=== PATIENT | male | born 1980 ===

== ENCOUNTER 2018-11-26 13:13 | Inpatient (IN) | payer BC, SELFPAY ==
[2018-11-26 14:59] VITALS: BMI 27.0
[2018-11-26] MEDS ORDERED: Aspirin 325 MG TAB ONE (15:18)
[2018-11-26] MEDS: Aspirin 325 MG TAB PO SCH ×2 (15:23→15:31)
[2018-11-26] MEDS ORDERED: Ondansetron PF 4 MG/2 ML Vial IVP PRN (16:50)
[2018-11-26] MEDS ORDERED: Ondansetron ODT 4 MG TAB PO PRN (16:50)
[2018-11-26] MEDS ORDERED: Acetaminophen 650 MG Suppository PR PRN (16:50)
[2018-11-26] MEDS ORDERED: Acetaminophen 325 MG TAB PO PRN (16:50)
--- NOTE | 2018-11-26 18:23 | ULT ---
CAROTID DOPPLER ULTRASOUND EVALUATION: 11/26/18 HISTORY: Stroke. Right sided weakness. TIAs. Multiple longitudinal and transverse images of the carotid arteries obtained using a multihertz linea r array transducer. Real time, color flow, and spectral waveform doppler analysis demonstrates no evidence of right or le ft common carotid, internal carotid, or external carotid artery, increased flow velocities or plaques seen. No evidence of flow limiting lesions seen. Antegrade flow is seen in both vertebral arteries. IMPRESSION: Normal carotid doppler ultrasound evaluation. POS: [facility]
[2018-11-26] MEDS: Famotidine 20 MG TAB PO SCH (22:06)
[2018-11-27 05:35] LABS: #Eosinphils 0.1 thou/uL (0.0-0.7); #Lymphocytes 0.9 thou/uL (1.20-3.40); #Monocytes 0.7 thou/uL (0.11-0.59); #Neutrophils 5.2 thou/uL (1.40-6.50); %Basophils 0.2 % (0.0-1.0); %Eosinophils 1.9 % (0.0-10.0); %Lymphocytes 12.6 % (21.0-51.0); %Monocytes 10.4 % (0.0-10.0); Hemoglobin 13.8 g/dL (14.0-18.0); Mean Corpuscular HGB CONC 32.2 g/dL (32.0-36.0); Mean Corpuscular Hemoglobin 27.3 pg (27.0-31.0); Mean Platelet Volume 6.1 fL (7.4-10.4); Platelet Count 279 thou/uL (130-400); Red Blood Cell (RBC) Count 5.04 mill/uL (4.70-6.10); White Blood Cell (WBC) Count 6.9 thou/uL (4.8-10.8)
[2018-11-27 05:56] LABS: Anion Gap 13 mmol/L (10-20); BUN (Urea Nitrogen) 10 mg/dL (8.9-20.6); Calc. Creatinine Clearance 99 mL/min (70-130); Calcium 9.7 mg/dL (7.8-10.44); Carbon Dioxide 26 mmol/L (22-29); Cardiac Risk 3.6 (Less than 4.5); Chloride 102 mmol/L (98-107); Cholesterol 116 mg/dl (< 200 Desired); Estimated GFR-MDRD 72; Glucose 98 mg/dL (70-105); HDL Cholesterol 32 mg/dL (>60 Neg Risk); LDL Cholesterol, Calculated 70 mg/dL; Sodium 137 mmol/L (136-145); Triglycerides 69 mg/dL (Less than 150)
[2018-11-27] MEDS: Famotidine 20 MG TAB PO SCH ×2 (08:59→20:45)
--- NOTE | 2018-11-27 09:42 | CON ---
DATE OF CONSULTATION: 11/26/2018 CONSULTING PHYSICIAN: Hospitalist Service. IMPRESSION: Probable left thalamic stroke. PLAN: 1. MRI of the brain. 2. Echocardiogram. HISTORY OF PRESENT ILLNESS: Mr. Vergara is a 38-year-old male with no significant past history other than hearing loss. He woke yesterday with numbness and weakness on the right side. His symptoms have improved slightly by his assessment. He has never had anything like this before. He is not having any headache, nausea, vomiting, vertigo, slurred speech, or difficulty swallowing. He came into the ER and the only available report is a carotid ultrasound, which was unremarkable. LABORATORY STUDIES: Include a CBC and serum chemistry showed normal findings with a cholesterol ratio of 3.6. PAST MEDICAL HISTORY: Otherwise, negative. ALLERGIES: NONE. SOCIAL HISTORY: No tobacco, alcohol, or illicit drugs. FAMILY HISTORY: Unremarkable for stroke. MEDICATION LIST: None. REVIEW OF SYSTEMS: Ten system review of systems is otherwise negative. PHYSICAL EXAMINATION: VITAL SIGNS: Blood pressure 117/80, pulse 95, respirations 16, and temperature 98.2. HEENT: Pupils are equal and reactive. Conjunctivae are clear. Oropharynx clear. NECK: Supple. No lymphadenopathy. EXTREMITIES: No cyanosis, clubbing, or edema. NEUROLOGIC: He is alert and cooperative. His speech was fluent and clear. Cranial nerves were intact other than subjective decreased touch in the right lower face. Motor exam showed antigravity strength in the extremities, but there was dysmetria on [id number] testing on the right side. Sensation was subjectively decreased in the right arm and leg to light touch. Plantar responses were downgoing. Gait was not tested. No abnormal movements were seen. SUMMARY: A 38-year-old man with acute onset of numbness and incoordination of the right side. These findings would suggest a small vessel stroke in the thalamus. I will see what the MRI reveals. I will go ahead and start him on aspirin and a statin and will follow up on the results. Job ID: [id number]
[2018-11-27] MEDS ORDERED: Lorazepam 0.5 MG TAB PO PRN (10:43)
[2018-11-27] MEDS ORDERED: Lorazepam 2 MG/ML VIAL SLOW IVP PRN (10:51)
--- NOTE | 2018-11-27 10:56 | MRI ---
NONCONTRAST MRI BRAIN: Date: 11/27/18 HISTORY: Right-sided numbness, tingling, and weakness. Reduced sensation on the right side. COMPARISON: None available. FINDINGS: There is a focal area of restricted diffusion seen within the left thalamus, compatible with an acute lacunar infarction. No additional acute infarction is seen. The lacunar infarction in the left thala mus measures approximately 1.3 cm. There is prominent motion artifact present on multiple sequences, limiting evaluation, but no definit e additional signal abnormalities are seen throughout the brain. The septum pellucidum and third ventricle are in the midline. The ventricular system is normal in siz e, shape, and position. Appropriate flow-voids are demonstrated at the base of the brain. There is almost complete opacification of the left maxillary antrum with mucus retention cyst seen in the right maxillary antrum. There is mucosal thickening seen in the region of the right frontoethmoi emilie recess. There is suggestion of a partially empty sella turcica. Orbits and remainder of skull base have a no rmal MRI appearance. IMPRESSION: Acute lacunar infarction left thalamus. Above findings discussed with Jacky, patient's nurse on the hospital floor, on 11/27/18 at 1048 hours . CODE CR. POS: [facility]
[2018-11-27] MEDS ORDERED: Aspirin 325 mg Enteric Coated Tablet PO SCH (12:15)
--- NOTE | 2018-11-27 14:58 | PDOC.PN ---
- Subjective Encounter Start Date: 11/27/18 Encounter Start Time: 11:00 The patient is a very pleasant 38 year old AAM who presented to the ED with complaints of right lower extremity and upper extremity weakness. MRI this morning has revealed an acute left thalamus CVA. He states that his right leg strength has much improved. He has also had some improvement in his right arm and hand, and can now hold his cell phone, where he couldn't before. He continues to complain of paresthesia in his right hand and arm. He has had no CP, SOB, or dizziness. He denies facial droop and slurred speech. - Objective Resuscitation Status - Order Detail: 11/26/18 16:50 Resuscitation Status Routine Co-Sign Provider: Resuscitation Status: FULL: Full Resuscitation Discussed with: Patient Vital Signs & Weight: Vital Signs (12 hours) Temp Pulse Resp BP BP Pulse Ox 11/27/18 12:00 98.2 F 99 16 130/89 99 11/27/18 09:00 98.2 F 95 16 117/80 99 11/27/18 07:40 98.2 F 95 16 117/80 99 11/27/18 04:00 98.4 F 88 18 118/73 98 Weight Weight 178 lb Result Diagrams: 11/27/18 04:56 11/27/18 04:56 Phys Exam - Physical Examination HEENT: PERRLA Neck: no nodes, no JVD, full ROM Respiratory: no wheezing, no rales, no rhonchi, clear to auscultation bilateral Cardiovascular: RRR Gastrointestinal: soft, non-tender Musculoskeletal: no edema, pulses present both lower extremities 5/5, RUE 3/5 Lymphatic: no nodes Psychiatric: normal affect, A&O x 3 Skin: no rash Dx/Plan (1) CVA (cerebral vascular accident) Code(s): I63.9 - CEREBRAL INFARCTION, UNSPECIFIED Status: Acute Comment: acute lacunar infarction left thalamus (2) Weakness following cerebrovascular accident (CVA) Code(s): I69.398 - OTHER SEQUELAE OF CEREBRAL INFARCTION; R53.1 - WEAKNESS Status: Acute Comment: Right upper extremity - Plan * . Neurology has been consulted. Given the patient's acute CVA and symptoms, he will need PT/OT eval. Start ASA and statin. Care discussed with the family and patient and all questions have been answered. Given his new diagnosis of acute CVA, he does meet inpatient criteria. Review of Systems - Review of Systems Constitutional: negative: fever, chills Eyes: negative: Pain, Vision Change ENT: negative: Ear Discharge Respiratory: negative: Cough Cardiovascular: negative: chest pain, palpitations, edema Gastrointestinal: negative: Nausea, Vomiting, Abdominal Pain Genitourinary: negative: Dysuria Neurological: Weakness - Medications/Allergies Allergies/Adverse Reactions: Allergies Allergy/AdvReac Type Severity Reaction Status Date / Time No Known Allergies Allergy Verified 11/26/18 16:40 Medications: Current Medications Acetaminophen (Tylenol) 650 mg PO Q4H PRN PRN Reason: Headache/Fever/Mild Pain (1-3) Acetaminophen (Tylenol) 650 mg [place] Q4H PRN PRN Reason: Headache/Fever/Mild Pain (1-3) Aspirin (Ecotrin) 325 mg PO DAILY [facility] Atorvastatin Calcium (Lipitor) 10 mg PO HS [facility] Famotidine (Pepcid) 20 mg PO BID [facility] Last Admin: 11/27/18 08:59 Dose: 20 mg Lorazepam (Ativan) 0.5 mg SLOW IVP Q6H PRN PRN Reason: Anxiety/Agitation Last Admin: 11/27/18 11:10 Dose: 0.5 mg Ondansetron HCl (Zofran Odt) 4 mg PO Q6H PRN PRN Reason: Nausea/Vomiting Ondansetron HCl (Zofran) 4 mg IVP Q6H PRN PRN Reason: Nausea/Vomiting Sodium Chloride (Flush - Normal Saline) 10 ml IVF Q12HR PRN PRN Reason: Saline Flush Last Admin: 11/26/18 22:06 Dose: 10 ml Sodium Chloride (Flush - Normal Saline) 10 ml IVF PRN PRN PRN Reason: Saline Flush
[2018-11-27] MEDS: Atorvastatin Calcium 10 MG TAB PO SCH (20:46)
[2018-11-28] MEDS: Famotidine 20 MG TAB PO SCH ×2 (08:21→21:53)
[2018-11-28] MEDS: Aspirin 325 mg Enteric Coated Tablet PO SCH (08:22)
--- NOTE | 2018-11-28 19:24 | PDOC.PN ---
- Subjective Encounter Start Date: 11/28/18 Encounter Start Time: 11:30 Patient seen and examined for Acute CVA. No new focal deficits. No new complaints. No overnight events - Objective Resuscitation Status - Order Detail: 11/26/18 16:50 Resuscitation Status Routine Co-Sign Provider: Resuscitation Status: FULL: Full Resuscitation Discussed with: Patient MAR Reviewed: Yes Vital Signs & Weight: Vital Signs (12 hours) Temp Pulse Pulse Pulse Resp BP BP 11/28/18 15:34 98.9 F 92 20 11/28/18 11:37 98.9 F 96 18 11/28/18 09:26 89 105 H 142/91 H 135/97 H 11/28/18 08:16 11/28/18 07:37 98.2 F 95 18 BP Pulse Ox 11/28/18 15:34 144/93 H 96 11/28/18 11:37 131/80 94 L 11/28/18 09:26 11/28/18 08:16 96 11/28/18 07:37 131/83 96 Weight Weight 178 lb I&O: 11/27/18 11/28/18 11/29/18 06:59 06:59 06:59 Intake Total 240 720 Balance 240 720 Result Diagrams: 11/27/18 04:56 11/27/18 04:56 EKG Reviewed by me: Yes (Tele SR) Phys Exam - Physical Examination Constitutional: NAD Respiratory: no wheezing, no rhonchi Cardiovascular: RRR, no rub Gastrointestinal: soft, positive bowel sounds Musculoskeletal: no edema Neurological: moves all 4 limbs no new focal deficits Psychiatric: A&O x 3 Dx/Plan - Plan DVT proph w/SCDs 1. Acute Left thalamic CVA causing Rt sided weakness/paresthesias 2. CKD 2 PLAN: Cont ASA/Statins Await Echo Cont PT DC in 24 hr if stable Review of Systems - Review of Systems Respiratory: negative: Cough, Dry, Shortness of Breath, Hemoptysis, SOB with Excertion, Pleuritic Pain, Sputum, Wheezing Cardiovascular: negative: chest pain, palpitations, orthopnea, paroxysmal nocturnal dyspnea, edema, light headedness, other - Medications/Allergies Allergies/Adverse Reactions: Allergies Allergy/AdvReac Type Severity Reaction Status Date / Time No Known Allergies Allergy Verified 11/26/18 16:40 Medications: Current Medications Acetaminophen (Tylenol) 650 mg PO Q4H PRN PRN Reason: Headache/Fever/Mild Pain (1-3) Acetaminophen (Tylenol) 650 mg [place] Q4H PRN PRN Reason: Headache/Fever/Mild Pain (1-3) Aspirin (Ecotrin) 325 mg PO DAILY [facility] Last Admin: 11/28/18 08:22 Dose: 325 mg Atorvastatin Calcium (Lipitor) 10 mg PO HS [facility] Last Admin: 11/27/18 20:46 Dose: 10 mg Famotidine (Pepcid) 20 mg PO BID [facility] Last Admin: 11/28/18 08:21 Dose: 20 mg Lorazepam (Ativan) 0.5 mg SLOW IVP Q6H PRN PRN Reason: Anxiety/Agitation Last Admin: 11/27/18 11:10 Dose: 0.5 mg Ondansetron HCl (Zofran Odt) 4 mg PO Q6H PRN PRN Reason: Nausea/Vomiting Ondansetron HCl (Zofran) 4 mg IVP Q6H PRN PRN Reason: Nausea/Vomiting Sodium Chloride (Flush - Normal Saline) 10 ml IVF Q12HR PRN PRN Reason: Saline Flush Last Admin: 11/27/18 20:46 Dose: 10 ml Sodium Chloride (Flush - Normal Saline) 10 ml IVF PRN PRN PRN Reason: Saline Flush
[2018-11-28] MEDS: Atorvastatin Calcium 10 MG TAB PO SCH (21:53)
--- NOTE | 2018-11-29 07:21 | HP ---
REASON FOR ADMISSION: Right-sided weakness. HISTORY OF PRESENT ILLNESS: Mr. Vergara is a very pleasant 38-year-old man, who presents complaining of heaviness and reduced sensation in the right lower extremity that was noticeable round 7:00 a.m., this morning when he got to work. He recalls feeling a buckling sensation in his right knee when he got out of bed earlier in the morning around 3:00 a.m. The patient states once he arrived to work, he noticed that the leg was much heavier, causing him to work harder to lift it as he walked in. He then began to notice reduced sensation in the right lower leg and quickly the heaviness and numbness advanced up to involve his arm and then he began to feel a numbness and tingling sensation in the right side of his face. He denies having any visual or speech disturbances. Denies experiencing any headaches. Has not had any recent trauma. Denies having any neck pain or back pain. Has not had any recent fevers, chills, or sweats. Has been in his usual state of health in recent days. The patient states he left work right away and actually drove himself home. He was having difficulty raising his leg to transfer from the gas to the brake pedal. He managed to get home and called EMS. He was taken to [facility], where he underwent a CT of the head that was negative and an EKG that showed no major changes. Due to Neuro not being on-call at [facility], he was transferred directly here. Next, at this present time, the patient is doing well and has been given aspirin on arrival. REVIEW OF SYSTEMS: The patient denies having any associated headaches, dizziness, blurred vision, or speech changes as mentioned previously. He denies having any gait disturbances in terms of staggering gait. He has a sense of heaviness on the right side including his right leg and upper extremity. He has no facial drooping. Has had no drooling or swallowing difficulties, which is reported. Numbness, tingling, involving the entire right side of his face and scalp. Denies any nausea or vomiting. Denies any abdominal pain or cramping. Denies any chest pain, palpitations, or shortness of breath. Has not been unwell in recent days. Denies any neck pain or back pain. No recent injuries or traumas. No bowel changes or urinary symptoms. No other new skin changes. All other review of systems are negative. PAST MEDICAL HISTORY: None. SOCIAL HISTORY: The patient denies any alcohol use, tobacco use, or illicit drug use. ALLERGIES: NO KNOWN DRUG ALLERGIES. COMMUNICATIONS: None. PHYSICAL EXAMINATION: GENERAL: The patient appears well developed, well nourished, in no acute distress. He was sitting in bed comfortably. VITAL SIGNS: Temperature 98.6, pulse 102, respirations 14, O2 saturation 97% on room air. HEENT: Normocephalic and atraumatic. Pupils are equal, round, and reactive to light. Extraocular movements intact. No nystagmus. Oropharynx is clear. NECK: Supple without lymphadenopathy. Full range of motion. Facial movements normal with reduced sensation on the anterior right side of his face and scalp. No tongue deviation. CARDIAC: Regular rate and rhythm. LUNGS: Clear to auscultation bilaterally without wheezes, rales, or rhonchi. ABDOMEN: Soft, nontender, nondistended. Normoactive bowel sounds present. EXTREMITIES: No clubbing, cyanosis, or edema. NEUROLOGIC: Alert and oriented x3. Power 5/5 in all limbs. Able to straight leg raise against resistance bilaterally. Minimal difficulty with straight leg raise in the right lower extremity, there is only passive straight leg raise in the right lower extremity due to sensation of heaviness, reduced sensation in the entire right side of his body. No cerebellar signs. LABORATORY DATA: . IMPRESSION AND PLAN: Mr. Vergara is a very pleasant 38-year-old being admitted for management of the following; 1. Right-sided weakness and reduced sensation. The patient is undergoing workup for possible transient ischemic attack/stroke. CTA/CT of the head done at [facility] showed no abnormalities. I have requested an MRI of the brain as well as MRI of the cervical spine; and carotid Doppler is also ordered as well as neuro consult. We will obtain a fasting lipid panel. 2. Diet. The patient has a normal swallowing study at bedside. Therefore, we will resume a regular diet. 3. Gastrointestinal prophylaxis. 4. Deep venous thromboembolism prophylaxis. 5. Full code status. He indicates his surrogate decision maker would be his mother . The patient's case was discussed with Dr. Basilio, who agrees with plan of care as described above. Job ID: [id number]
[2018-11-29 07:38] VITALS: BP 131/75; TEMP 99.2
[2018-11-29] MEDS: Famotidine 20 MG TAB PO SCH (08:38)
[2018-11-29] MEDS: Aspirin 325 mg Enteric Coated Tablet PO SCH (08:38)
--- NOTE | 2018-11-29 17:35 | DIS ---
DATE OF ADMISSION: 11/27/2018 DATE OF DISCHARGE: 11/29/2018 DISCHARGE DISPOSITION: Home. FOLLOWUP: 1. Follow up with primary care physician at [facility] in 1 week. 2. Follow up with Neurology Dr. Amaya as outpatient in 2 to 3 weeks. ALLERGIES: NO KNOWN DRUG ALLERGIES. OUTPATIENT PHYSICAL THERAPY REFERRAL WAS PROVIDED. DISCHARGE MEDICATIONS: 1. Aspirin 325 mg daily. 2. Lipitor 10 mg at bedtime. The patient was seen and examined on the day of discharge. Denies any new complaints. No chest pain, shortness of breath, palpitations, or new focal deficit reported. BRIEF HOSPITAL COURSE: The patient is a 38-year-old male with no significant past medical history. He presented to the hospital with right-sided weakness along with paresthesias. Please refer to the history and physical for further details. The patient was admitted to the hospital with a diagnosis of suspected CVA. MRI of the brain showed acute lacunar infarction of the left thalamus. Carotid Doppler was negative for hemodynamically significant stenosis. Echocardiogram showed normal left ventricular ejection fraction of 55% to 60% with diastolic dysfunction, mild to moderate tricuspid regurgitation, mild mitral regurgitation. His symptoms are gradually improving. His LDL level was 70 with cholesterol 116, triglycerides 69 with HDL of 32. He has been started on low-dose statin along with aspirin per Neurology recommendation. He appears stable for discharge. FINAL DIAGNOSES: 1. Acute left thalamic cerebrovascular accident causing right-sided weakness and paresthesias, improving. 2. Chronic kidney disease, stage 2. 3. Mild anemia, normochromic normocytic. PLAN: Plan was discussed with the patient in detail. He stated understanding. Job ID: [id number]
== END 2018-11-29 11:30 | disposition home or self-care (01) | DRG 65 ==
LOC: INTOOBSV 13:50 → 2SE 13:50 → OBSVTOIN 11-27 14:51
PROVIDERS: ADMIT Internal Medicine; ATTEND Internal Medicine
DX: I63.81 Other cerebral infarction due to occlusion or stenosis of small artery (principal); G81.91 Hemiplegia, unspecified affecting right dominant side; N18.2 Chronic kidney disease, stage 2 (mild); R20.0 Anesthesia of skin; I08.1 Rheumatic disorders of both mitral and tricuspid valves; D64.9 Anemia, unspecified
CPT/HCPCS: 36415; 70551; 80048; 80061; 85025; 93306; 93880; J2060

== ENCOUNTER 2021-10-15 06:21 | Inpatient (IN) | payer BC ==
[2021-10-15 07:20] LABS: Hemoglobin 11.4 g/dL (14.0-18.0); Mean Corpuscular HGB CONC 30.9 g/dL (32.0-36.0); Mean Corpuscular Hemoglobin 25.1 pg (27.0-31.0); Mean Corpuscular Volume 81.1 fL (78.0-98.0); Platelet Count 363 thou/uL (130-400); RBC Distribution Width 12.8 % (11.5-14.5); Red Blood Cell (RBC) Count 4.54 mill/uL (4.70-6.10); White Blood Cell (WBC) Count 17.6 thou/uL (4.8-10.8)
[2021-10-15 07:21] LABS: ALT (SGPT) 9 U/L (8-55); AST (SGOT) 20 U/L (5-34); Albumin 2.5 g/dL (3.5-5.0); Alkaline Phosphatase 63 U/L (40-110); Anion Gap 18 mmol/L (10-20); BUN (Urea Nitrogen) 11 mg/dL (8.9-20.6); Bilirubin, Total 0.4 mg/dL (0.2-1.2); Calc. Creatinine Clearance 0 mL/min (70-130); Calcium 8.7 mg/dL (7.8-10.44); Carbon Dioxide 20 mmol/L (22-29); Chloride 98 mmol/L (98-107); Globulin 6.9 g/dL (2.4-3.5); Glucose 225 mg/dL (70-105); Potassium 4.1 mmol/L (3.5-5.1); Protein, Total 9.4 g/dL (6.0-8.3); Sodium 132 mmol/L (136-145)
[2021-10-15 07:46] LABS: Band 14 % (5-11); Eosinophils 6 % (0-10); Lymphocytes 7 % (21-51); MDiff Complete? YES; Monocytes 7 % (0-10); Neutrophil 65 % (42-75); Platelet Morphology Comment Appears Adequate; Polychromasia SLIGHT = 2-3 cells (100X) (0-2/hpf); Reactive Lymphocytes 1 % (0-10); Rouleaux Formation SLIGHT = 1-5 cells (100X) (None Seen)
[2021-10-15] MEDS ORDERED: diphenhydrAMINE 50 MG/ML VIAL ONE (08:25)
[2021-10-15] MEDS ORDERED: Piperacillin/Tazobactam 3.375 GM VIAL ONE ×2 (08:27→17:49)
[2021-10-15 08:37] LABS: INR-International Normal Ratio 1.3; Prothrombin Time 15.9 sec (12.0-14.7)
[2021-10-15 08:38] LABS: PTT 44.9 sec (22.9-36.1)
[2021-10-15] MEDS ORDERED: Piperacillin/Tazobactam 3.375 GM in Sodium Chloride 0.9% 100 ML IVPB SCH ×2 (08:45→18:00)
[2021-10-15] MEDS ORDERED: Heparin 1,000 UNITS/ML VIAL ONE (09:35)
[2021-10-15 09:45] LABS: Bilirubin Negative (Negative); Blood, Urine 3+ (Negative); Clarity Clear (Clear); Glucose, Urine (Dipstick) Normal (Negative); Ketone, Urine Negative (Negative); Leukocyte Negative Leu/uL (Negative); Nitrite Negative (Negative); Protein, Urine (Dipstick) 50 mg/dL (Neg-Trace); Squamous Epithelial 0-3 HPF (0-3); pH, Urine 5.5 (5.0-9.0)
[2021-10-15 09:54] LABS: Bacteria/HPF 1+ HPF (None Seen)
[2021-10-15 11:04] LABS: Syphilis Antibody REACTIVE (Nonreactive); Syphilis Antibody Index 18.84 S/CO (<1.00 Non-Reactive)
[2021-10-15] MEDS ORDERED: Acetaminophen 325 MG TAB PO PRN (13:09)
[2021-10-15] MEDS ORDERED: HumaLOG 300 UNITS/3 ML VIAL SC PRN (14:01)
[2021-10-15] MEDS ORDERED: Dextrose 50% Abboject 50 ML SYRINGE SLOW IVP PRN (14:01)
[2021-10-15] MEDS ORDERED: Dextrose 5% in Water 1,000 ML IV PRN (14:01)
[2021-10-15 15:22] LABS: Lactic Acid 1.6 mmol/L (0.5-2.2)
[2021-10-15 15:26] LABS: Hemoglobin A1c 6.5 % (4.0-6.0)
[2021-10-15 15:51] LABS: HBSAg Index 0.26 S/CO (0-0.99); Hep A IgM AB Non-Reactive (NonReactive); Hep A IgM S/CO 0.12 S/CO (0-0.79); Hep B Surf Ag Non-Reactive S/CO (NonReactive); Hep C IgG Ab Non-Reactive (NonReactive); Hep C Index 0.24 S/CO (0-0.79); Hepatitis B Core IgM Abs Non-Reactive (NonReactive)
[2021-10-15 17:20] VITALS: BMI 25.4
[2021-10-15] MEDS: Sodium Chloride 0.9% 1,000 ML IV SCH ×2 (17:37→23:57)
[2021-10-15] MEDS: Piperacillin/Tazobactam 3.375 GM in Sodium Chloride 0.9% 100 ML IVPB SCH (17:56)
[2021-10-15 18:39] LABS: SARS-CoV-2 PCR by NAA Not Detected (NotDetected)
[2021-10-15] MEDS: Atorvastatin Calcium 40 MG TAB PO SCH (20:08)
[2021-10-15 20:39] LABS: HBSAB Concentration Less than 8.00 mIU/mL; HBSAg Index 0.25 S/CO (0-0.99); Hep B Surf AB Non-Reactive (NonReactive); Hep B Surf Ag Non-Reactive S/CO (NonReactive); Hep C IgG Ab Non-Reactive (NonReactive); Hep C Index 0.24 S/CO (0-0.79)
[2021-10-15 23:01] LABS: HIV (1/2) Antibody/Antigen Reflxed Confirmation (NonReactive)
[2021-10-16] MEDS: Piperacillin/Tazobactam 3.375 GM in Sodium Chloride 0.9% 100 ML IVPB SCH ×4 (00:11→23:49)
[2021-10-16 03:34] LABS: HIV 1/2 INDEX 1273.86 S/CO (<1.00)
[2021-10-16] MEDS: Sodium Chloride 0.9% 1,000 ML IV SCH ×4 (03:52→23:49)
[2021-10-16 05:22] LABS: #Eosinphils 2.2 thou/uL (0.0-0.7); #Lymphocytes 0.8 thou/uL (1.20-3.40); #Monocytes 0.9 thou/uL (0.11-0.59); %Basophils 0.2 % (0.0-1.0); %Eosinophils 16.9 % (0.0-10.0); %Lymphocytes 6.5 % (21.0-51.0); %Monocytes 6.6 % (0.0-10.0); %Neutrophils 69.7 % (42.0-75.0); Hemoglobin 9.9 g/dL (14.0-18.0); Mean Corpuscular HGB CONC 30.9 g/dL (32.0-36.0); Mean Corpuscular Hemoglobin 25.7 pg (27.0-31.0); Mean Corpuscular Volume 83.1 fL (78.0-98.0); Mean Platelet Volume 5.5 fL (7.4-10.4); Platelet Count 434 thou/uL (130-400); RBC Distribution Width 12.6 % (11.5-14.5); Red Blood Cell (RBC) Count 3.84 mill/uL (4.70-6.10); White Blood Cell (WBC) Count 12.9 thou/uL (4.8-10.8)
[2021-10-16 05:44] LABS: Anion Gap 12 mmol/L (10-20); BUN (Urea Nitrogen) 9 mg/dL (8.9-20.6); Calc. Creatinine Clearance 100 mL/min (70-130); Carbon Dioxide 23 mmol/L (22-29); Chloride 105 mmol/L (98-107); Glucose 121 mg/dL (70-105); Potassium 3.8 mmol/L (3.5-5.1); Sodium 136 mmol/L (136-145)
[2021-10-16] MEDS: Aspirin 81 mg Enteric Coated Tablet PO SCH (08:08)
[2021-10-16] MEDS ORDERED: FLU VACC QS2021-22(6MOS UP)/PF 60 MCG/0.5 ML SYRINGE IM ONE (09:00)
[2021-10-16] MEDS: Lorazepam 2 MG/ML VIAL SLOW IVP PRN ×2 (09:30→15:18)
[2021-10-16] MEDS: diphenhydrAMINE 25 MG CAP PO PRN ×2 (13:47→20:43)
[2021-10-16 19:51] LABS: CSF Source CSF
[2021-10-16 19:52] LABS: Clarity Clear (Clear); Tube # 4
[2021-10-16] MEDS: Atorvastatin Calcium 40 MG TAB PO SCH (20:40)
[2021-10-17 06:10] LABS: #Eosinphils 2.2 thou/uL (0.0-0.7); #Lymphocytes 0.9 thou/uL (1.20-3.40); #Monocytes 0.7 thou/uL (0.11-0.59); #Neutrophils 5.1 thou/uL (1.40-6.50); %Basophils 0.3 % (0.0-1.0); %Eosinophils 24.8 % (0.0-10.0); %Lymphocytes 10.5 % (21.0-51.0); %Monocytes 7.6 % (0.0-10.0); %Neutrophils 56.7 % (42.0-75.0); Hemoglobin 9.7 g/dL (14.0-18.0); Mean Corpuscular HGB CONC 31.3 g/dL (32.0-36.0); Mean Corpuscular Hemoglobin 25.6 pg (27.0-31.0); Mean Corpuscular Volume 81.6 fL (78.0-98.0); Mean Platelet Volume 5.3 fL (7.4-10.4); Platelet Count 411 thou/uL (130-400); RBC Distribution Width 12.6 % (11.5-14.5); Red Blood Cell (RBC) Count 3.78 mill/uL (4.70-6.10)
[2021-10-17 06:36] LABS: ALT (SGPT) 9 U/L (8-55); AST (SGOT) 24 U/L (5-34); Albumin 2.1 g/dL (3.5-5.0); Alkaline Phosphatase 49 U/L (40-110); Anion Gap 13 mmol/L (10-20); BUN (Urea Nitrogen) 8 mg/dL (8.9-20.6); Bilirubin, Total 0.3 mg/dL (0.2-1.2); Calc. Creatinine Clearance 104 mL/min (70-130); Carbon Dioxide 23 mmol/L (22-29); Chloride 106 mmol/L (98-107); Globulin 5.5 g/dL (2.4-3.5); Glucose 99 mg/dL (70-105); Potassium 3.8 mmol/L (3.5-5.1); Protein, Total 7.6 g/dL (6.0-8.3); Sodium 138 mmol/L (136-145)
[2021-10-17] MEDS: Piperacillin/Tazobactam 3.375 GM in Sodium Chloride 0.9% 100 ML IVPB SCH ×2 (08:31→17:50)
[2021-10-17] MEDS: Aspirin 81 mg Enteric Coated Tablet PO SCH (08:31)
[2021-10-17] MEDS: Sodium Chloride 0.9% 1,000 ML IV SCH ×2 (08:46→22:20)
[2021-10-17] MEDS: Penicillin G Potassium 4 MILL.UNITS in Sodium Chloride 0.9% 100 ML IVPB SCH ×2 (12:59→19:34)
[2021-10-17] MEDS ORDERED: Penicillin G Potassium 4,000,000 UNITS in Syringe 0 ML IVPB SCH (13:00)
[2021-10-17 13:17] LABS: %CD4 (Helper/Inducer) 11.3 % (30.8-58.5); Absolute CD4 124 /uL (359-1519); Lymphocytes/Gated Cell Count 1.1 x10E3/uL (0.7-3.1); Total Lymphocyte 9 % (Not Estab.); WBC Total Count 12.1 x10E3/uL (3.4-10.8)
[2021-10-17 15:41] LABS: HIV 1 Antibody Multi-Spot Reactive (Non Reactive); HIV 2 Antibody Multi-Spot Non Reactive (Non Reactive); HIV Multi-spot Interp HIV-1 Positive (.)
[2021-10-17] MEDS: Raltegravir Potassium 400 MG TAB PO SCH (22:16)
[2021-10-17] MEDS: Atorvastatin Calcium 40 MG TAB PO SCH (22:17)
[2021-10-17] MEDS: Lopinavir/Ritonavir 200-50mg TAB PO SCH (22:17)
[2021-10-18] MEDS: diphenhydrAMINE 25 MG CAP PO PRN (01:29)
[2021-10-18] MEDS: Penicillin G Potassium 4 MILL.UNITS in Sodium Chloride 0.9% 100 ML IVPB SCH ×7 (01:30→21:00)
[2021-10-18] MEDS: Piperacillin/Tazobactam 3.375 GM in Sodium Chloride 0.9% 100 ML IVPB SCH ×3 (01:30→16:00)
[2021-10-18] MEDS: Lopinavir/Ritonavir 200-50mg TAB PO SCH ×2 (08:45→21:01)
[2021-10-18] MEDS: Raltegravir Potassium 400 MG TAB PO SCH ×2 (08:45→21:01)
[2021-10-18] MEDS: Sulfameth/Trimethoprim DS 800-160mg TAB PO SCH (08:45)
[2021-10-18] MEDS: Aspirin 81 mg Enteric Coated Tablet PO SCH (08:46)
[2021-10-18] MEDS: Sodium Chloride 0.9% 1,000 ML IV SCH ×2 (08:46→21:16)
[2021-10-18 13:14] LABS: LOG10 HIV-1 RNA 5.111 (.)
[2021-10-18] MEDS: Atorvastatin Calcium 40 MG TAB PO SCH (21:01)
[2021-10-19] MEDS: Piperacillin/Tazobactam 3.375 GM in Sodium Chloride 0.9% 100 ML IVPB SCH ×3 (00:51→16:59)
[2021-10-19] MEDS: Penicillin G Potassium 4 MILL.UNITS in Sodium Chloride 0.9% 100 ML IVPB SCH ×6 (01:20→21:24)
[2021-10-19] MEDS: Sodium Chloride 0.9% 1,000 ML IV SCH ×2 (06:28→09:05)
[2021-10-19] MEDS: Raltegravir Potassium 400 MG TAB PO SCH ×2 (09:05→21:24)
[2021-10-19] MEDS: Aspirin 81 mg Enteric Coated Tablet PO SCH (09:05)
[2021-10-19] MEDS: Lopinavir/Ritonavir 200-50mg TAB PO SCH ×2 (09:05→21:24)
[2021-10-19] MEDS: Sulfameth/Trimethoprim DS 800-160mg TAB PO SCH (09:05)
[2021-10-19 13:55] LABS: Anion Gap 12 mmol/L (10-20); BUN (Urea Nitrogen) 5 mg/dL (8.9-20.6); Calc. Creatinine Clearance 99 mL/min (70-130); Calcium 8.2 mg/dL (7.8-10.44); Carbon Dioxide 25 mmol/L (22-29); Chloride 105 mmol/L (98-107); Glucose 83 mg/dL (70-105); Potassium 4.2 mmol/L (3.5-5.1); Sodium 138 mmol/L (136-145)
[2021-10-19 14:01] LABS: Hemoglobin 10.8 g/dL (14.0-18.0); MDiff Complete? YES; Mean Corpuscular HGB CONC 30.3 g/dL (32.0-36.0); Mean Corpuscular Volume 82.8 fL (78.0-98.0); Mean Platelet Volume 5.6 fL (7.4-10.4); Platelet Count 528 thou/uL (130-400); Red Blood Cell (RBC) Count 4.33 mill/uL (4.70-6.10); White Blood Cell (WBC) Count 11.7 thou/uL (4.8-10.8)
[2021-10-19 14:02] LABS: Band 4 % (5-11); Eosinophils 26 % (0-10); Lymphocytes 10 % (21-51); Monocytes 5 % (0-10); Neutrophil 55 % (42-75); Platelet Morphology Comment Appears Increased; Polychromasia SLIGHT = 2-3 cells (100X) (0-2/hpf)
[2021-10-19] MEDS: Atorvastatin Calcium 40 MG TAB PO SCH (21:24)
[2021-10-20] MEDS: Piperacillin/Tazobactam 3.375 GM in Sodium Chloride 0.9% 100 ML IVPB SCH ×3 (01:28→17:43)
[2021-10-20] MEDS: Penicillin G Potassium 4 MILL.UNITS in Sodium Chloride 0.9% 100 ML IVPB SCH ×6 (01:28→21:42)
[2021-10-20] MEDS: Lopinavir/Ritonavir 200-50mg TAB PO SCH ×2 (09:17→21:41)
[2021-10-20] MEDS: Aspirin 81 mg Enteric Coated Tablet PO SCH (09:17)
[2021-10-20] MEDS: Raltegravir Potassium 400 MG TAB PO SCH ×2 (09:18→21:41)
[2021-10-20] MEDS: Sulfameth/Trimethoprim DS 800-160mg TAB PO SCH (09:18)
[2021-10-20] MEDS: Atorvastatin Calcium 40 MG TAB PO SCH (21:42)
[2021-10-21] MEDS: Penicillin G Potassium 4 MILL.UNITS in Sodium Chloride 0.9% 100 ML IVPB SCH ×5 (00:17→22:01)
[2021-10-21] MEDS: Piperacillin/Tazobactam 3.375 GM in Sodium Chloride 0.9% 100 ML IVPB SCH ×2 (00:18→08:53)
[2021-10-21] MEDS: Sulfameth/Trimethoprim DS 800-160mg TAB PO SCH (08:52)
[2021-10-21] MEDS: Raltegravir Potassium 400 MG TAB PO SCH ×2 (08:52→22:01)
[2021-10-21] MEDS: Aspirin 81 mg Enteric Coated Tablet PO SCH (08:52)
[2021-10-21] MEDS: Lopinavir/Ritonavir 200-50mg TAB PO SCH ×2 (08:53→22:01)
[2021-10-21] MEDS: Atorvastatin Calcium 40 MG TAB PO SCH (22:02)
[2021-10-21] MEDS: diphenhydrAMINE 25 MG CAP PO PRN (22:02)
[2021-10-22] MEDS: Penicillin G Potassium 4 MILL.UNITS in Sodium Chloride 0.9% 100 ML IVPB SCH ×6 (01:56→21:02)
[2021-10-22] MEDS: Sulfameth/Trimethoprim DS 800-160mg TAB PO SCH (09:57)
[2021-10-22] MEDS: Aspirin 81 mg Enteric Coated Tablet PO SCH (09:57)
[2021-10-22] MEDS: Lopinavir/Ritonavir 200-50mg TAB PO SCH ×3 (09:58→21:03)
[2021-10-22] MEDS: Raltegravir Potassium 400 MG TAB PO SCH ×2 (11:16→21:03)
[2021-10-22 11:56] LABS: SARS-CoV-2 PCR by NAA Not Detected (NotDetected)
[2021-10-22] MEDS: Atorvastatin Calcium 40 MG TAB PO SCH (21:03)
[2021-10-23] MEDS: Penicillin G Potassium 4 MILL.UNITS in Sodium Chloride 0.9% 100 ML IVPB SCH ×4 (00:18→11:04)
[2021-10-23] MEDS: diphenhydrAMINE 25 MG CAP PO PRN (00:39)
[2021-10-23] MEDS: Lopinavir/Ritonavir 200-50mg TAB PO SCH (08:22)
[2021-10-23] MEDS: Raltegravir Potassium 400 MG TAB PO SCH (08:23)
[2021-10-23] MEDS: Sulfameth/Trimethoprim DS 800-160mg TAB PO SCH (08:23)
[2021-10-23] MEDS: Aspirin 81 mg Enteric Coated Tablet PO SCH (08:23)
[2021-10-23 16:02] VITALS: BP 138/86; TEMP 98.2
== END 2021-10-23 15:48 | disposition home or self-care (01) | DRG 975 ==
LOC: ERS 06:21 → ERHOLD 13:04 → INTOOBSV 13:04 → T4-B 19:23 → OBSVTOIN 10-16 11:27
PROVIDERS: ADMIT Internal Medicine; ATTEND Family Medicine
PROC: 009U3ZX Drainage of Spinal Canal, Percutaneous Approach, Diagnostic (ICD-10-PCS; principal; 2021-10-16)
PROC: B01BZZZ Fluoroscopy of Spinal Cord (ICD-10-PCS; 2021-10-16)
PROC: 02HV33Z Insertion of Infusion Device into Superior Vena Cava, Percutaneous Approach (ICD-10-PCS; 2021-10-21)
PROC: B548ZZA Ultrasonography of Superior Vena Cava, Guidance (ICD-10-PCS; 2021-10-21)
DX: A41.9 Sepsis, unspecified organism (principal); B20 Human immunodeficiency virus [HIV] disease; L02.219 Cutaneous abscess of trunk, unspecified; L03.319 Cellulitis of trunk, unspecified; I69.951 Hemiplegia and hemiparesis following unspecified cerebrovascular disease affecting right dominant side; A53.9 Syphilis, unspecified; E11.65 Type 2 diabetes mellitus with hyperglycemia; Z20.822 Contact with and (suspected) exposure to COVID-19; Z79.82 Long term (current) use of aspirin
CPT/HCPCS: 36415; 36416; 36569; 62270; 70450; 70551; 71045; 80048; 80053; 80074; 81003; 81015; 82945; 83036; 83605; 84157; 84484; 85025; 85048; 85610; 85730; 86361; 86592; 86593; 86701; 86702; 86706; 86780; 86803; 87040; 87340; 87389; 87536; 87591; 87899; 89051; 93005; 94760; 96375; 96376; C1751; G0378; J1200; J1644; J2060; J2540; J2543; J3490; J7050; U0003; U0005

== ENCOUNTER 2022-02-03 11:42 | Inpatient (IN) | payer BC ==
[2022-02-03 12:58] VITALS: BMI 22.6
[2022-02-03] MEDS ORDERED: Dextrose 50% Abboject 50 ML SYRINGE SLOW IVP PRN (13:32)
[2022-02-03] MEDS ORDERED: Dextrose 5% in Water 1,000 ML IV PRN (13:32)
[2022-02-03] MEDS ORDERED: HumaLOG 300 UNITS/3 ML VIAL SC PRN ×2 (13:32)
[2022-02-03] MEDS ORDERED: hydrALAZINE 10 MG TAB PO PRN (14:08)
[2022-02-03 14:12] LABS: #Eosinphils 1.6 thou/uL (0.0-0.7); #Lymphocytes 1.4 thou/uL (1.20-3.40); #Monocytes 0.9 thou/uL (0.11-0.59); #Neutrophils 9.7 thou/uL (1.40-6.50); %Basophils 0.3 % (0.0-1.0); %Lymphocytes 10.1 % (21.0-51.0); %Monocytes 6.4 % (0.0-10.0); %Neutrophils 71.2 % (42.0-75.0); Hemoglobin 12.1 g/dL (14.0-18.0); Mean Corpuscular HGB CONC 30.8 g/dL (32.0-36.0); Mean Corpuscular Volume 90.8 fL (78.0-98.0); Mean Platelet Volume 5.1 fL (7.4-10.4); Platelet Count 519 thou/uL (130-400); RBC Distribution Width 13.5 % (11.5-14.5); White Blood Cell (WBC) Count 13.6 thou/uL (4.8-10.8)
[2022-02-03 14:20] LABS: Hemoglobin A1c 6.2 % (4.0-6.0)
[2022-02-03 14:22] LABS: INR-International Normal Ratio 1.2
[2022-02-03 14:33] LABS: ALT (SGPT) 10 U/L (8-55); AST (SGOT) 13 U/L (5-34); Albumin 2.6 g/dL (3.5-5.0); Alkaline Phosphatase 90 U/L (40-110); Anion Gap 14 mmol/L (10-20); BUN (Urea Nitrogen) 6 mg/dL (8.9-20.6); Bilirubin, Total 0.3 mg/dL (0.2-1.2); Calc. Creatinine Clearance 67 mL/min (70-130); Calcium 8.6 mg/dL (7.8-10.44); Carbon Dioxide 23 mmol/L (22-29); Chloride 103 mmol/L (98-107); Globulin 4.7 g/dL (2.4-3.5); Glucose 187 mg/dL (70-105); Protein, Total 7.3 g/dL (6.0-8.3); Sodium 136 mmol/L (136-145)
[2022-02-03 15:44] LABS: Bacteria/HPF None Seen HPF (None Seen); Bilirubin Negative (Negative); Blood, Urine 1+ (Negative); Clarity Clear (Clear); Glucose, Urine (Dipstick) Normal (Negative); Ketone, Urine Negative (Negative); Leukocyte Negative Leu/uL (Negative); Nitrite Negative (Negative); Protein, Urine (Dipstick) 20 mg/dL (Neg-Trace); Specific Gravity, Urine 1.023 (1.002-1.036); Squamous Epithelial 0-3 HPF (0-3); Urobilinogen Normal mg/dL (Less than 2)
[2022-02-03] MEDS: Metoprolol Tartrate 25 MG TAB PO SCH (19:50)
[2022-02-03 20:01] LABS: SARS-CoV-2 PCR by NAA Not Detected (NotDetected)
[2022-02-04 07:57] LABS: Hemoglobin 12.2 g/dL (14.0-18.0); Mean Corpuscular HGB CONC 31.4 g/dL (32.0-36.0); Mean Corpuscular Hemoglobin 28.3 pg (27.0-31.0); Mean Corpuscular Volume 90.1 fL (78.0-98.0); Mean Platelet Volume 5.4 fL (7.4-10.4); Platelet Count 656 thou/uL (130-400); White Blood Cell (WBC) Count 17.3 thou/uL (4.8-10.8)
[2022-02-04 08:12] LABS: Anion Gap 14 mmol/L (10-20); BUN (Urea Nitrogen) 7 mg/dL (8.9-20.6); Calc. Creatinine Clearance 80 mL/min (70-130); Calcium 8.4 mg/dL (7.8-10.44); Carbon Dioxide 24 mmol/L (22-29); Chloride 106 mmol/L (98-107); Glucose 109 mg/dL (70-105); Potassium 4.2 mmol/L (3.5-5.1); Sodium 140 mmol/L (136-145)
[2022-02-04 08:16] LABS: #Eosinphils 3.4 thou/uL (0.0-0.7); #Lymphocytes 1.7 thou/uL (1.20-3.40); #Neutrophils 11.1 thou/uL (1.40-6.50); %Basophils 0.3 % (0.0-1.0); %Eosinophils 19.7 % (0.0-10.0); %Monocytes 5.9 % (0.0-10.0); Eosinophils 16 % (0-10); Lymphocytes 11 % (21-51); MDiff Complete? YES; Monocytes 2 % (0-10); Neutrophil 71 % (42-75); Platelet Morphology Comment Appears Increased; RBC Morphology Normal
[2022-02-04] MEDS ORDERED: DOLUTEGRAVIR SODIUM PO SCH (09:00)
[2022-02-04] MEDS ORDERED: LAMIVUDINE PO SCH (09:00)
[2022-02-04] MEDS: Metoprolol Tartrate 25 MG TAB PO SCH ×2 (09:56→20:49)
[2022-02-04] MEDS: Enoxaparin Sodium 40 MG/0.4 ML SYRINGE SC SCH (09:57)
[2022-02-04] MEDS ORDERED: predniSONE 50 MG TAB PO SCH (11:34)
[2022-02-04] MEDS: Sodium Chloride 0.9% 1,000 ML IV SCH ×2 (14:31→20:51)
[2022-02-04] MEDS: hydrOXYzine 25 MG TAB PO SCH ×3 (14:31→20:49)
[2022-02-05 05:45] LABS: Hemoglobin 11.7 g/dL (14.0-18.0); Mean Corpuscular Hemoglobin 28.8 pg (27.0-31.0); Mean Corpuscular Volume 90.1 fL (78.0-98.0); Mean Platelet Volume 5.2 fL (7.4-10.4); Platelet Count 563 thou/uL (130-400); RBC Distribution Width 13.5 % (11.5-14.5); Red Blood Cell (RBC) Count 4.07 mill/uL (4.70-6.10); White Blood Cell (WBC) Count 14.1 thou/uL (4.8-10.8)
[2022-02-05 05:50] LABS: Band 1 % (5-11); Eosinophils 33 % (0-10); Lymphocytes 5 % (21-51); MDiff Complete? YES; Monocytes 4 % (0-10); Neutrophil 57 % (42-75)
[2022-02-05] MEDS: Enoxaparin Sodium 40 MG/0.4 ML SYRINGE SC SCH (09:30)
[2022-02-05] MEDS: Metoprolol Tartrate 25 MG TAB PO SCH ×2 (09:31→20:28)
[2022-02-05] MEDS: hydrOXYzine 25 MG TAB PO SCH ×4 (09:31→20:29)
[2022-02-05] MEDS ORDERED: Ivermectin 3 MG TAB PO SCH (11:00)
[2022-02-05] MEDS: Sodium Chloride 0.9% 1,000 ML IV SCH ×3 (11:10→20:27)
[2022-02-06] MEDS: Sodium Chloride 0.9% 1,000 ML IV SCH ×2 (03:20→09:00)
[2022-02-06 05:33] LABS: Band 2 % (5-11); Eosinophils 24 % (0-10); Lymphocytes 13 % (21-51); MDiff Complete? YES; Monocytes 5 % (0-10); Neutrophil 55 % (42-75)
[2022-02-06 05:34] LABS: Hemoglobin 10.3 g/dL (14.0-18.0); Mean Corpuscular HGB CONC 31.7 g/dL (32.0-36.0); Mean Corpuscular Hemoglobin 28.6 pg (27.0-31.0); Mean Corpuscular Volume 90.1 fL (78.0-98.0); Mean Platelet Volume 4.9 fL (7.4-10.4); Platelet Count 453 thou/uL (130-400); RBC Distribution Width 13.6 % (11.5-14.5); Red Blood Cell (RBC) Count 3.62 mill/uL (4.70-6.10)
[2022-02-06] MEDS: Metoprolol Tartrate 25 MG TAB PO SCH (08:59)
[2022-02-06] MEDS: hydrOXYzine 25 MG TAB PO SCH ×2 (08:59→13:48)
[2022-02-06] MEDS: Enoxaparin Sodium 40 MG/0.4 ML SYRINGE SC SCH (08:59)
[2022-02-06] MEDS ORDERED: Ivermectin 3 MG TAB PO SCH (09:00)
[2022-02-06 11:46] VITALS: BP 119/66; TEMP 97.9
[2022-02-12] MEDS ORDERED: Ivermectin 3 MG TAB PO SCH (09:00)
[2022-02-19] MEDS ORDERED: Ivermectin 3 MG TAB PO SCH (09:00)
== END 2022-02-06 15:00 | disposition home or self-care (01) | DRG 607 ==
LOC: INTOOBSV 12:01 → 2SW 12:01 → OBSVTOIN 02-04 12:33
PROVIDERS: ADMIT Internal Medicine; ATTEND Internal Medicine
PROC: 0HB5XZX Excision of Chest Skin, External Approach, Diagnostic (ICD-10-PCS; principal; 2022-02-03)
DX: B86 Scabies (principal); I69.951 Hemiplegia and hemiparesis following unspecified cerebrovascular disease affecting right dominant side; Z21 Asymptomatic human immunodeficiency virus [HIV] infection status; Z20.822 Contact with and (suspected) exposure to COVID-19; E11.9 Type 2 diabetes mellitus without complications; D64.9 Anemia, unspecified; Z88.1 Allergy status to other antibiotic agents; Z88.2 Allergy status to sulfonamides; Z79.899 Other long term (current) drug therapy; Z86.61 Personal history of infections of the central nervous system
CPT/HCPCS: 36415; 36416; 80048; 80053; 81001; 83036; 85025; 85610; 88305; 93005; 93010; 96372; G0378; J1650; J7050; U0003; U0005